=== PATIENT | male | born 1985 | race Caucasian/White ===

== ENCOUNTER 2022-04-28 19:31 | Emergency (ER) | payer OTHER, SELFPAY ==
--- NOTE | ~2022-04-28 | XR_ITS ---
EXAMINATION: CHEST, SOFT TISSUE NECK, ABDOMEN CLINICAL INFORMATION: Eating oxtail with question of occipital bone stuck in throat COMPARISON: None TECHNIQUE: 2 views neck, 2 views throat, single view abdomen FINDINGS: NECK: Some mild degenerative changes are present with some calcifications at the C3-C4 anterior disc space and at the inferior aspect of the C4 vertebral body. No prevertebral soft tissue swelling is seen. No fractures or subluxations. No definite radiopaque foreign bodies are seen. CHEST: No significant abnormality is seen involving the heart, lungs, mediastinum or bony thorax. No radiopaque foreign bodies are seen. ABDOMEN: The bowel gas pattern is normal. No evidence of obstruction. Large phleboliths are present in the pelvis. No radiopaque foreign bodies are seen. XR/XR soft tissue neck IMPRESSION: No radiopaque foreign bodies are seen. Some mild degenerative changes are present in the cervical spine.
--- NOTE | ~2022-04-28 | XR_ITS ---
EXAMINATION: CHEST, SOFT TISSUE NECK, ABDOMEN CLINICAL INFORMATION: Eating oxtail with question of occipital bone stuck in throat COMPARISON: None TECHNIQUE: 2 views neck, 2 views throat, single view abdomen FINDINGS: NECK: Some mild degenerative changes are present with some calcifications at the C3-C4 anterior disc space and at the inferior aspect of the C4 vertebral body. No prevertebral soft tissue swelling is seen. No fractures or subluxations. No definite radiopaque foreign bodies are seen. CHEST: No significant abnormality is seen involving the heart, lungs, mediastinum or bony thorax. No radiopaque foreign bodies are seen. ABDOMEN: The bowel gas pattern is normal. No evidence of obstruction. Large phleboliths are present in the pelvis. No radiopaque foreign bodies are seen. XR/XR chest 2V IMPRESSION: No radiopaque foreign bodies are seen. Some mild degenerative changes are present in the cervical spine.
--- NOTE | ~2022-04-28 | XR_ITS ---
EXAMINATION: CHEST, SOFT TISSUE NECK, ABDOMEN CLINICAL INFORMATION: Eating oxtail with question of occipital bone stuck in throat COMPARISON: None TECHNIQUE: 2 views neck, 2 views throat, single view abdomen FINDINGS: NECK: Some mild degenerative changes are present with some calcifications at the C3-C4 anterior disc space and at the inferior aspect of the C4 vertebral body. No prevertebral soft tissue swelling is seen. No fractures or subluxations. No definite radiopaque foreign bodies are seen. CHEST: No significant abnormality is seen involving the heart, lungs, mediastinum or bony thorax. No radiopaque foreign bodies are seen. ABDOMEN: The bowel gas pattern is normal. No evidence of obstruction. Large phleboliths are present in the pelvis. No radiopaque foreign bodies are seen. XR/XR abdomen 1V IMPRESSION: No radiopaque foreign bodies are seen. Some mild degenerative changes are present in the cervical spine.
[2022-04-28 19:49] VITALS: BP 139/95; PULSE 100; RESP 18; TEMP 36.4; O2SAT 95; BMI 33.9
--- NOTE | 2022-04-28 19:51 | ED_ITS ---
HPI - Skin/Abscess/Foreign Bdy General Chief complaint: General Medical <DEXTER Gaston - Last Filed: 04/28/22 19:51> Stated complaint: throat pain <DEXTER Gaston Last Filed: 04/28/22 19:51> Time Seen by Provider: 04/28/22 20:21 <DEXTER Gaston - Last Filed: 04/28/22 19:51> Source: patient <DEXTER Collins Last Filed: 04/28/22 21:42> Mode of arrival: ambulatory <DEXTER Collins Last Filed: 04/28/22 21:42> Limitations: no limitations <DEXTER Collins Last Filed: 04/28/22 21:42> History of Present Illness HPI narrative: Patient is a 36 year old assigned male at with no reported medical history presenting to the emergency department today with throat pain. Patient states that he was eating ox tail when his throat started to hurt. Patient states that he is concerned that he has a bone stuck in his throat. Patient states that he is able to swallow. Patient denies any dizziness, lightheadedness, abdominal pain, nausea, vomiting, fever, chills, blurry vision, double vision, loss of vision, chest pain, difficulty breathing, shortness of breath, back pain, night sweats, pain with urination, increased urinary frequency, increased urinary urgency, blood in his urine or stool, syncope or a near syncopal episode, recent trauma or falls, bowel incontinence, bladder incontinence, bowel retention, bladder retention, or any other complaints at this time. <DEXTER Collins - Last Filed: 04/28/22 21:42> Onset (ago): hour(s) <DEXTER Collins Last Filed: 04/28/22 21:42> Severity: mild <DEXTER Collins Last Filed: 04/28/22 21:42> Severity scale (1-10): 2 <DEXTER Collins Last Filed: 04/28/22 21:42> Relieving factors: none <DEXTER Collins Last Filed: 04/28/22 21:42> Exacerbating factors: none <DEXTER Collins Last Filed: 04/28/22 21:42> Context: none <DEXTER Collins - Last Filed: 04/28/22 21:42> Associated symptoms: denies other symptoms <DEXTER Collins - Last Filed: 04/28/22 21:42> Treatments prior to arrival: none <DEXTER Collins - Last Filed: 04/28/22 21:42> Related Data Home medications: Previous Rx's Medication Instructions Recorded lidocaine HCl 2 % mucosal solution 1.2 ml PO BID #100 mL 04/28/22 (Lidocaine Viscous) <DEXTER Gaston - Last Filed: 04/28/22 19:51> Allergies/Adverse reactions: Allergies Allergy/AdvReac Type Severity Reaction Status Date / Time No Known Allergies Allergy Verified 04/28/22 19:49 <DEXTER Gaston - Last Filed: 04/28/22 19:51> Review of Systems Constitutional: Constitutional: Reports no additional constitutional complaints, Denies chills, Denies fever(s) and Denies night sweats <DEXTER Collins - Last Filed: 04/28/22 21:42> Eyes: Eyes: Reports no additional eye complaints, Denies blurry vision, Denies change in vision, Denies diplopia, Denies eye discharge, Denies loss of vision and Denies eye pain <DEXTER Collins - Last Filed: 04/28/22 21:42> ENT: Denies dizziness and Reports sore throat <DEXTER Collins - Last Filed: 04/28/22 21:42> Cardiovascular: Cardiovascular: Reports no additional cardiovascular complaints, Denies chest pain, Denies lightheadedness, Denies Loss of Consciousness and Denies dyspnea <DEXTER Collins - Last Filed: 04/28/22 21:42> Respiratory: Respiratory: Reports no additional respiratory complaints and Denies dyspnea <DEXTER Collins - Last Filed: 04/28/22 21:42> Gastrointestinal: Gastrointestinal: Reports no additional gastrointestinal complaints, Denies abdominal pain, Denies melena, Denies hematochezia, Denies change in bowel habits and Denies change in stool character <DEXTER Collins Last Filed: 04/28/22 21:42> Genitourinary: Genitourinary: Reports no additional male genitourinary complaints, Denies hematuria, Denies oliguria, Denies difficulty urinating, Denies dysuria, Denies urinary frequency, Denies urinary hesitancy, Denies urinary incontinence and Denies urinary urgency <DEXTER Collins - Last Filed: 04/28/22 21:42> Musculoskeletal: Musculoskeletal: Reports no additional musculoskeletal complaints, Denies numbness and Denies tingling <DEXTER Collins - Last Filed: 04/28/22 21:42> Neurologic: Denies dizziness, Denies loss of vision, Denies numbness and Denies tingling <DEXTER Collins - Last Filed: 04/28/22 21:42> Psychiatric: Psychiatric: Reports no additional psychiatric complaints <DEXTER Collins - Last Filed: 04/28/22 21:42> Endocrine: Endocrine: Reports no additional endocrine complaints <DEXTER Collins - Last Filed: 04/28/22 21:42> Hematologic/Lymphatic: Hematologic/Lymphatic: Reports no additional hematologic/lymphatic complaints <DEXTER Collins - Last Filed: 04/28/22 21:42> Allergic/Immunologic: Allergic/Immunologic: Reports no additional allergic/immunologic complaints <DEXTER Collins - Last Filed: 04/28/22 21:42> [facility] Past Medical History Attestation statement: The following information was validated with the patient. <DEXTER Collins - Last Filed: 04/28/22 21:42> Source: old records reviewed and nursing notes reviewed <DEXTER Collins - Last Filed: 04/28/22 21:42> Social History Social History: Social History Advance Directives: No Advance Directives Information Provided: No <DEXTER Gaston - Last Filed: 04/28/22 19:51> Physical Exam Vital Signs: Vital Signs: Last Vital Signs Temp 97.5 F 04/28/22 19:49 Pulse 100 04/28/22 19:49 Resp 18 04/28/22 19:49 BP 139/95 H 04/28/22 19:49 Pulse Ox 95 04/28/22 19:49 O2 Del Method 04/28/22 19:49 BMI result Body Mass Index 33.9 <DEXTER Gaston - Last Filed: 04/28/22 19:51> Vital Signs: Last Vital Signs Temp 97.5 F 04/28/22 19:49 Pulse 100 04/28/22 19:49 Resp 18 04/28/22 19:49 BP 139/95 H 04/28/22 19:49 Pulse Ox 95 04/28/22 19:49 O2 Del Method 04/28/22 19:49 BMI result Body Mass Index 33.9 <DEXTER Collins - Last Filed: 04/28/22 21:42> Const: General: cooperative, no acute distress, alert and awake <DEXTER Collins - Last Filed: 04/28/22 21:42> Nutritional Appearance: well nourished <DEXTER Collins - Last Filed: 04/28/22 21:42> Orientation/consciousness: patient oriented x3 <DEXTER Collins - Last Filed: 04/28/22 21:42> Limitations: no limitations <DEXTER Collins - Last Filed: 04/28/22 21:42> HEENT: Head: Yes normal to inspection and Yes atraumatic <DEXTER Collins - Last Filed: 04/28/22 21:42> Ears: hearing grossly normal bilaterally and external ears normal <DEXTER Collins - Last Filed: 04/28/22 21:42> General nose exam: Normal external nose present, no nasal discharge noted and no epistaxis <DEXTER Collins - Last Filed: 04/28/22 21:42> Face and sinus: Yes normal facial exam, No abrasion and No laceration <DEXTER Collins - Last Filed: 04/28/22 21:42> Mouth: Normal oral and palatal mucosa present, no drooling and no muffled voice <DEXTER Collins - Last Filed: 04/28/22 21:42> Eyes: General: appearance normal, both eyes and all related structures <DEXTER Collins - Last Filed: 04/28/22 21:42> Periorbital: periorbital findings normal <DEXTER Collins - Last Filed: 04/28/22 21:42> Eyelids: Yes eyelids normal <DEXTER Collins Last Filed: 04/28/22 21:42> Conjunctivae: conjunctivae normal <Susie Jones PA - Last Filed: 04/28/22 21:42> Pupils: Equal, round and reactive pupils present <Susie Jones PA - Last Filed: 04/28/22 21:42> EOM: EOMs intact bilaterally <Susie Jones PA - Last Filed: 04/28/22 21:42> Neck: Neck: Yes normal visual inspection, Yes full ROM and Yes no lymphadenopathy <Susie Jones, PA - Last Filed: 04/28/22 21:42> Chest: Chest palpation & inspection: normal inspection of the chest <Susie Jones PA - Last Filed: 04/28/22 21:42> Resp: Effort & Inspection: normal respiratory effort and able to speak in complete sentences <Susie Jones PA - Last Filed: 04/28/22 21:42> Auscultation: clear to auscultation bilaterally <Susie Jones PA - Last Filed: 04/28/22 21:42> Cardio: Rate: regular rate <Susie Jones PA - Last Filed: 04/28/22 21:42> Rhythm: regular rhythm <Susie Jones PA - Last Filed: 04/28/22 21:42> GI: Inspection: Yes normal to inspection <Susie Jones PA - Last Filed: 04/28/22 21:42> Palpation (GI): Soft to palpation, not firm, nontender, no guarding and not rigid <Susie Jones PA - Last Filed: 04/28/22 21:42> Neuro: General: patient oriented x3 and moves all extremities <Susie Jones PA - Last Filed: 04/28/22 21:42> Cranial nerves: Yes Equal, round and reactive pupils present <Susie Jones PA - Last Filed: 04/28/22 21:42> Cognition (Neuro): normal cognition <Susie Jones PA - Last Filed: 04/28/22 21:42> Motor exam (neuro): 5/5 motor strength present throughout <Susie Jones PA - Last Filed: 04/28/22 21:42> Sensory Exam: Normal double simultaneous stimulation for sensation <Susiejamila KirkpatrickDEXTER nicole - Last Filed: 04/28/22 21:42> Coordination: [id number] test normal <Susiejamila KirkpatrickDEXTER nicole - Last Filed: 04/28/22 21:42> Extrem: General: Yes normal to inspection, Yes full ROM and Yes capillary refill normal <Susie KirkpatrickDEXTER nicole - Last Filed: 04/28/22 21:42> Psych: Appearance: grossly normal <Susiejamila KirkpatrickDEXTER nicole - Last Filed: 04/28/22 21:42> Mental Status: mental status grossly normal <Susiejamila KirkpatrickDEXTER nicole - Last Filed: 04/28/22 21:42> Affect: normal affect <Susiejamila KirkpatrickDEXTER nicole - Last Filed: 04/28/22 21:42> Attitude: cooperative <Susiejamila KirkpatrickDEXTER nicole - Last Filed: 04/28/22 21:42> Thought process: Normal thought process present <DEXTER Collins - Last Filed: 04/28/22 21:42> Thought content: Normal thought content present <DEXTER Collins - Last Filed: 04/28/22 21:42> Insight: Good insight present (Psych) <Susiejamila KirkpatrickDEXTER nicole - Last Filed: 04/28/22 21:42> Course Course Course Narrative: RME-19:50pm - 36yoM reports he was eating ox scale prior to arrival and has some throat discomfort unsure if he has a bone in his throat. Reports he was able to eat a banana and drink some water after the although feels like something is stuck. Denies any other symptoms related to this. Plan: X-rays ordered at this time. Patient is stable to go back to the waiting room to be evaluated in the [facility] <DEXTER Gaston - Last Filed: 04/28/22 19:51> Medical Decision Making Medical Decision Making MDM Narrative: Patient is a 36 year old assigned male at with no reported medical history presenting to the emergency department today with throat pain. Patient's physical exam was unremarkable. Patient was able to tolerate secretions, and did not have any hoarseness. Patient's soft tissue neck, chest, and abdominal x-rays showed no acute process. I explained my physical exam findings as well as all test results to the patient. I answered all questions asked by the patient. I stressed the importance of the patient taking his medication as prescribed. I stressed the importance of the patient following up with his primary care provid er. I stressed the importance of the patient returning to the emergency department immediately if his symptoms were to worsen or if he were to develop any dizziness, shortness of breath, difficulty breathing, chest pain, blurry vision, loss of vision, nausea, vomiting, abdominal pain, fever, chills, back pain, or any other complaints. Patient verbalized agreement and understanding with this treatment plan and discharge. <DEXTER Collins - Last Filed: 04/28/22 21:42> Differential Diagnosis Differential Diagnoses: The differential diagnosis associated with the presentation includes <DEXTER Collins - Last Filed: 04/28/22 21:42> esophagitis <DEXTER Collins - Last Filed: 04/28/22 21:42> Radiology Impression Discussion of test interpretation with radiology: I have reviewed the radiologist's reading. <DEXTER Collins - Last Filed: 04/28/22 21:42> Radiologist Impression: EXAMINATION: CHEST, SOFT TISSUE NECK, ABDOMEN CLINICAL INFORMATION: Eating oxtail with question of occipital bone stuck in throat? COMPARISON: None? TECHNIQUE: 2 views neck, 2 views throat, single view abdomen? FINDINGS: NECK: Some mild degenerative changes are present with some calcifications at the C3-C4 anterior disc space and at the inferior aspect of the C4 vertebral body. No prevertebral soft tissue swelling is seen. No fractures or subluxations. No definite radiopaque foreign bodies are seen. CHEST: No significant abnormality is seen involving the heart, lungs, mediastinum or bony thorax. No radiopaque foreign bodies are seen. ABDOMEN: The bowel gas pattern is normal. No evidence of obstruction. Large phleboliths are present in the pelvis. No radiopaque foreign bodies are seen. XR/XR soft tissue neck IMPRESSION: No radiopaque foreign bodies are seen. Some mild degenerative changes are present in the cervical spine. Dictated By: Mookie Suazo MD Signed By: Electronically signed by Mookie Suazo MD 04/28/222042 <DEXTER Collins - Last Filed: 04/28/22 21:42> Discharge Plan Discharge Clinical Impression: Esophagitis <DEXTER Gaston Last Filed: 04/28/22 19:51> Patient Disposition: Home, Self-Care <DEXTER Gaston - Last Filed: 04/28/22 19:51> Instructions: Esophagitis (ED) <DEXTER Gaston - Last Filed: 04/28/22 19:51> Additional Instructions: Follow up with your primary care provider. Return to the emergency department immediately if your symptoms worsen or if you develop any dizziness, shortness of breath, difficulty breathing, chest pain, blurry vision, loss of vision, nausea, vomiting, abdominal pain, fever, chills, back pain, or any other complaints. <DEXTER Gaston - Last Filed: 04/28/22 19:51> Prescriptions: New lidocaine HCl [Lidocaine Viscous] 2 % solution 1.2 ml PO BID Qty: 100 0RF <DEXTER Gaston - Last Filed: 04/28/22 19:51> Referrals: [facility] [place], [place] Family Medicine [Provider Group] (Call to establish and follow up with a primary care provider. If you already have a primary care provider, please follow up with them. ) [facility] [place] [place] Primary [facility], [place] [Provider Group] (Call to establish and follow up with a primary care provider. If you already have a primary care provider, please follow up with them. ) [facility] [place] [place] Primary [facility] [Provider Group] (Call to establish and follow up with a primary care provider. If you already have a primary care provider, please follow up with them. ) <DEXTER Gaston - Last Filed: 04/28/22 19:51> Stand Alone Forms: Work/School Release <DEXTER Gaston - Last Filed: 04/28/22 19:51> Interventions: ED Discharge Assessment Last Done: 04/28/22 21:09 <DEXTER Gaston Last Filed: 04/28/22 19:51> Discharge Date/Time: 04/28/22 21:09 <DEXTER Gaston Last Filed: 04/28/22 19:51> Print Language: Turkmen <DEXTER Gaston Last Filed: 04/28/22 19:51>
== END 2022-04-28 21:09 | disposition home or self-care (01) ==
PROVIDERS: Emergency Provider Emergency Medicine
DX: K20.90 Esophagitis, unspecified without bleeding (principal)
CPT/HCPCS: 70360; 71046; 74018; 99282; 99283